=== PATIENT | female | born 1965 | race African-American/Black ===

== ENCOUNTER 2017-06-02 13:24 | Emergency (ER) | payer OTHER ==
[~2017-06-02] VITALS: Ht 157.5 cm; Wt 82.0 kg
[~2017-06-02 13:24] MED LIST: ALBU6.7H INH; ALBU8I INH; ALDA50TA2 PO; BETA0.052 TOPICAL; CART300C2 PO; CHLO25TA24 PO; CHLOR50 PO; CLOB0.055 TOPICAL; CYCL5TAB PO; EPIP0.3I IM; MONT10 PO; TRIA.1%T TOP; ZITHTAB PO; ZOLP10TA3 PO; [UNRECOGNIZED DRUG - SUPPLY]
[2017-06-02 13:34] VITALS: BP 126/66; PULSE 64; RESP 15; TEMP 98.3; O2SAT 99
[2017-06-02] MEDS ORDERED: CHLO25TA2 PO (13:56)
[2017-06-02] MEDS ORDERED: DILT300C3 PO (13:56)
[2017-06-02] MEDS ORDERED: MECLIZINE HCL 25 MG TAB PO ONE (14:00)
[2017-06-02] MEDS ORDERED: ONDANSETRON HCL 4 MG/2 ML VIAL IM ONE (14:00)
[2017-06-02] MEDS ORDERED: MORPHINE SULFATE 8 MG/ML INJ IM ONE (14:00)
[2017-06-02] MEDS ORDERED: MORPHINE SULFATE 4 MG/ML INJ IM ONE (14:00)
--- NOTE | 2017-06-02 14:00 | PD ---
HPI Chief Complaint: Dizziness Time Seen by Provider: 13:41 Travel History International Travel<30 days: No Contact w/Intl Traveler<30days: No Traveled to known affect area: No History of Present Illness HPI The patient was seen and examined in the presence of the nurse. This patient complains of room spinning dizziness as well as frontal headache. He does have occasional migraines. She's had vertigo before. No head injury or fever. No muscle weakness or sensory loss or speech slurring. She does have anxiety problems. Symptoms are moderately severe. No alleviating factors. Duration one day PFSH Past Medical History Asthma: Yes Autoimmune Disease: Yes Blood Disorders: No Heart Rhythm Problems: No Cancer: No Cardiovascular Problems: Yes (IRREGULAR BEAT) High Cholesterol: No Chest Pain: No Congestive Heart Failure: No COPD: No Cerebrovascular Accident: No Diabetes: No Diminished Hearing: No Endocrine: No Genitourinary: No Hepatitis: No Hiatal Hernia: No Hypertension: Yes Immune Disorder: No Musculoskeletal: No Neurologic: Yes Psychiatric: No Reproductive: No Respiratory: Yes Migraines: Yes Myocardial Infarction: No Seizures: Yes (LAST SEIZURE 07/2011 NOT CURRENTLY TAKING MEDICATION) Sleep Apnea: No Thyroid Disease: No Menopausal: Yes : 3 Para: 2 Past Surgical History Abdominal Surgery: No AICD: No Arteriovenous Shunt: No Cardiac Surgery: No Section: Yes Ear Surgery: No Endocrine Surgery: No Eye Surgery: No Genitourinary Surgery: No Gynecologic Surgery: Yes (C SECTION, REMOVAL FIBROID TUMORS) Hysterectomy: Yes Insulin Pump: No Joint Replacement: No Oral Surgery: No Pacemaker: No Thoracic Surgery: No Other Surgery: Yes ( BREAST REDUCTION) Social History Alcohol Use: No Tobacco Use: No Substance Use: No Allergies-Medications (Allergen,Severity, Reaction): Coded Allergies: Latex (Verified Allergy, Severe, Rash, 06/02/17) Rash all over Solu-Medrol (Verified Allergy, Severe, Hives, 06/02/17) Hives all over body Banana (Verified Allergy, Intermediate, allergy testing , 06/02/17) Egg Allergy (Verified Allergy, Intermediate, hives, 06/02/17) Tomato (Verified Allergy, Intermediate, hives, 06/02/17) White Fish (Verified Allergy, Intermediate, hives, 06/02/17) VA Inhibitors (Verified Adverse Reaction, Severe, angioedema and dermatitis, 06/02/17) Reported Meds & Prescriptions Reported Meds & Active Scripts Active K-Vescent (Potassium Bicarbonate) 25 Meq Tab 50 Meq PO Q3HR Aldactone (Spironolactone) 50 Mg Tab 50 Mg PO DAILY one tablet three days per week [Comp hose med press] Reported Diltiazem CD 24 HR 300 Mg Caper 300 Mg PO DAILY Chlorthalidone 25 Mg Tab 25 Mg PO DAILY Review of Systems General / Constitutional: No: Fever Eyes: No: Visual changes HENT: Positive: Headaches, Vertigo Cardiovascular: No: Chest Pain or Discomfort Respiratory: No: Shortness of Breath Gastrointestinal: No: Abdominal Pain Genitourinary: No: Dysuria Musculoskeletal: No: Pain Skin: No Rash Neurologic: Positive: Dizziness, Headache, No: Weakness Psychiatric: No: Depression Endocrine: No: Polydipsia Hematologic/Lymphatic: No: Easy Bruising Physical Exam Narrative GENERAL: Well-nourished, well-developed patient with vertigo and headache. SKIN: Focused skin assessment reveals no rash and nodules. Skin is Warm and dry. HEAD: Atraumatic. Normocephalic. EYES: Pupils equal and round. No scleral icterus. No injection or drainage. ENT: No nasal bleeding or discharge. Mucous membranes pink and moist. NECK: Trachea midline. No JVD. No meningeal signs CARDIOVASCULAR: Regular rate and rhythm. No murmur appreciated. RESPIRATORY: No accessory muscle use. Clear to auscultation. Breath sounds equal bilaterally. GASTROINTESTINAL: Abdomen soft, non-tender, nondistended. Hepatic and splenic margins not palpable. MUSCULOSKELETAL: No obvious deformities. No clubbing. No cyanosis. No edema. NEUROLOGICAL: Awake and alert. No obvious cranial nerve deficits. Motor grossly within normal limits. Normal speech. PSYCHIATRIC: Appropriate mood and affect; insight and judgment normal. Data Data Last Documented VS Vital Signs Date Time Temp Pulse Resp B/P Pulse Ox O2 Delivery O2 Flow Rate FiO2 06/02/17 16:13 68 16 112/62 99 Room Air 06/02/17 13:[address] Brain W/O Iv Contrast(Rout) (06/02/17 ) Ondansetron Inj (Zofran Inj) (06/02/17 14:00) Meclizine (Antivert) (06/02/17 14:00) Morphine Inj (Morphine Inj) (06/02/17 14:00) Iv Access Insert/Monitor (06/02/17 14:52) Complete Blood Count With Diff (06/02/17 14:52) Comprehensive Metabolic Panel (06/02/17 14:52) Lipase (06/02/17 14:52) Sodium Chlor 0.9% 1000 Ml Inj (Ns 1000 M (06/02/17 15:00) Labs Laboratory Tests Test 06/02/17 15:05 White Blood Count 12.8 TH/MM3 Red Blood Count 4.51 MIL/MM3 Hemoglobin 13.0 GM/DL Hematocrit 38.9 % Mean Corpuscular Volume 86.4 FL Mean Corpuscular Hemoglobin 28.8 PG Mean Corpuscular Hemoglobin 33.3 % Concent Red Cell Distribution Width 13.4 % Platelet Count 332 TH/MM3 Mean Platelet Volume 8.5 FL Neutrophils (%) (Auto) 43.9 % Lymphocytes (%) (Auto) 44.1 % Monocytes (%) (Auto) 7.7 % Eosinophils (%) (Auto) 0.4 % Basophils (%) (Auto) 3.9 % Neutrophils # (Auto) 5.6 TH/MM3 Lymphocytes # (Auto) 5.6 TH/MM3 Monocytes # (Auto) 1.0 TH/MM3 Eosinophils # (Auto) 0.1 TH/MM3 Basophils # (Auto) 0.5 TH/MM3 CBC Comment AUTO DIFF Sodium Level 139 MEQ/L Potassium Level 2.8 MEQ/L Chloride Level 100 MEQ/L Carbon Dioxide Level 28.7 MEQ/L Anion Gap 10 MEQ/L Blood Urea Nitrogen 11 MG/DL Creatinine 1.20 MG/DL Estimat Glomerular Filtration 58 ML/MIN Rate Random Glucose 116 MG/DL Calcium Level 9.4 MG/DL Total Bilirubin 0.4 MG/DL Aspartate Amino Transf 33 U/L (AST/SGOT) Alanine Aminotransferase 25 U/L (ALT/SGPT) Alkaline Phosphatase 79 U/L Total Protein 8.4 GM/DL Albumin 3.8 GM/DL Lipase 250 U/L [facility] Medical Decision Making Medical Screen Exam Complete: Yes Emergency Medical Condition: Yes Medical Record Reviewed: Yes Differential Diagnosis Vertigo, migraine, cluster headache Narrative Course I have reviewed the patient's electronic medical record. Patient is neurologically intact No objective findings on exam Brain CT is normal She has some degree of positional vertigo. I gave her dose of meclizine as well as some morphine and Zofran injection for symptom relief Shortly after the morphine injection of the patient developed epigastric pain. She thinks it's due to the medication as she had not mentioned it or had it prior I discussed that this would be an atypical reaction but she seemed overly symptomatic Therefore I placed an IV and ran some labs CBC is normal Metabolic profile normal except for hypokalemia of 2.8 I wrote a prescription for replacement doses LFTs and lipase are normal On reassessment she feels much better and her epigastric pain and headache have resolved I wrote her some Zofran and meclizine on prescription as well as the potassium Diagnosis Primary Impression: Positional vertigo Qualified Code: H81.10 - Positional vertigo, unspecified laterality Additional Impressions: Headache Qualified Code: R51 - Acute nonintractable headache, unspecified headache type Acute epigastric pain Hypokalemia Additional Instructions: The patient was advised to follow up with their physician and return if they worsen. The patient was warned about potential sedation for the medications they will receive on prescription. Med/Other Pt SpecificInfo: Prescription(s) given Scripts Ondansetron (Zofran)4 Mg Tab4 Mg PO Q6HR PRN (NAUSEA OR VOMITING) #12 TAB Ref 0 Prov:Michel Dejesus MD 06/02/17 Meclizine 25 Mg Tab25 Mg PO TID PRN (VERTIGO) #15 TAB Ref 0 Prov:Michel Dejesus MD 06/02/17 Potassium Bicarbonate Effervescent (K-Vescent)25 Meq Tab50 Meq PO Q3HR #4 TAB Ref 0 Prov:Michel Dejesus MD 06/02/17 Disposition: 01 DISCHARGE HOME Condition: Stable Michel Dejesus MD Jun 02, 2017 14:00
--- NOTE | 2017-06-02 14:21 | RADRPT ---
EXAM DATE/TIME: 06/02/2017 14:03 [facility] COMPARISON: CT BRAIN W/O CONTRAST, September 20, 2010, 13:39. INDICATIONS : Cephalgia. Dizziness. RADIATION DOSE: 66.57 CTDIvol (mGy) MEDICAL HISTORY : Seizures. Hypertension. SURGICAL HISTORY : Hysterectomy. section. ENCOUNTER: Initial ACUITY: 2 days PAIN SCALE: 8/10 LOCATION: cranial TECHNIQUE: Multiple contiguous axial images were obtained of the head. Using automated exposure control and adj ustment of the mA and/or kV according to patient size, radiation dose was kept as low as reasonably a chievable to obtain optimal diagnostic quality images. DICOM format image data is available electro nically for review and comparison. FINDINGS: CEREBRUM: The ventricles are normal for age. No evidence of midline shift, mass lesion, hemorrhage or acute in farction. No extra-axial fluid collections are seen. POSTERIOR FOSSA: The cerebellum and brainstem are intact. The 4th ventricle is midline. The cerebellopontine angle i s unremarkable. EXTRACRANIAL: The visualized portion of the orbits is intact. SKULL: The calvaria is intact. No evidence of skull fracture. CONCLUSION: Normal examination for a patient of this age. No significant change has occurred. Arias Hussein MD on June 02, 2017 at 14:19 Board Certified Radiologist. This report was verified electronically.
[2017-06-02 14:40] VITALS: BP 113/59; PULSE 70; RESP 16; O2SAT 100
[2017-06-02] MEDS ORDERED: SODIUM CHLOR 0.9% 1000 ML INJ 1,000 ML IV ONE (15:00)
[2017-06-02 15:15] VITALS: BP 144/71; PULSE 66; RESP 18; O2SAT 100
[2017-06-02 15:22] LABS: AUTOMATED NEUTROPHIL # 5.6 TH/MM3 (1.8-7.7); BASOPHIL # 0.5 TH/MM3 (0-0.2); BASOPHIL % 3.9 % (0.0-2.0); EOSINOPHIL # 0.1 TH/MM3 (0-0.4); EOSINOPHIL % 0.4 % (0.0-4.0); HEMATOCRIT 38.9 % (35.0-46.0); LYMPH % 44.1 % (9.0-44.0); LYMPHOCYTE # 5.6 TH/MM3 (1.0-4.8); MEAN CELL VOLUME 86.4 FL (80.0-100.0); MEAN CORPUSCULAR HEMOGLOBIN 28.8 PG (27.0-34.0); MEAN CORPUSCULAR HGB CONC 33.3 % (32.0-36.0); MONO % 7.7 % (0.0-8.0); NEUT % 43.9 % (16.0-70.0); PLATELET COUNT 332 TH/MM3 (150-450); RED BLOOD COUNT 4.51 MIL/MM3 (4.00-5.30); RED CELL DISTRIBUTION WIDTH 13.4 % (11.6-17.2); WHITE BLOOD COUNT 12.8 TH/MM3 (4.0-11.0)
[2017-06-02 15:27] LABS: HEMO FLAGS AUTO DIFF
[2017-06-02 15:44] LABS: ALT (GPT) 25 U/L (10-53); ANION GAP 10 MEQ/L (5-15); AST (GOT) 33 U/L (15-37); BICARBONATE 28.7 MEQ/L (21.0-32.0); BLOOD UREA NITROGEN 11 MG/DL (7-18); CHLORIDE 100 MEQ/L (98-107); GLOMERULAR FILTRATION RATE 58 ML/MIN (>89); SODIUM (NA) 139 MEQ/L (136-145); TOTAL BILIRUBIN ADULT 0.4 MG/DL (0.2-1.0)
[2017-06-02 15:46] LABS: POTASSIUM 2.8 MEQ/L (3.5-5.1)
[2017-06-02 16:13] VITALS: BP 112/62; PULSE 68; RESP 16; O2SAT 99
[2017-06-02 16:17] LABS: ALKALINE PHOSPHATASE 79 U/L (45-117)
[2017-06-02] MEDS ORDERED: KLORCONEF PO (16:21)
[2017-06-02] MEDS ORDERED: MECL-62 PO (16:22)
[2017-06-02] MEDS ORDERED: ZOFR4TAB PO (16:22)
[2017-06-02 17:11] LABS: SCAN/DIFF AUTO DIFF CONFIRMED
== END 2017-06-02 16:41 | disposition home or self-care (01) ==
LOC: PHED 13:24
DX: H81.10 Benign paroxysmal vertigo, unspecified ear (principal); R51 Headache; R10.13 Epigastric pain; E87.6 Hypokalemia; I10 Essential (primary) hypertension
CPT/HCPCS: 70450; 80053; 83690; 85025; 96360; 96372; 99285; J2270; J2405; J7030

== ENCOUNTER 2018-02-21 19:23 | Emergency (ER) | payer OTHER ==
[~2018-02-21 19:23] MED LIST changes: -*MEPERIDINE 25 MG INJ VIAL PERIprocedural Use ONLY ONE; -BACITRACIN TOP OINT 15 GM TUBE ONE; -CHLORHEXIDINE GLUCONATE 2 % 1 PACK (2 CLOTHS) TOPICAL PRN; -DO NOT ADM ANY ANTICOAGULANT DRUGS PRN; -EPINEPHrine HCL (1:1000) 1 MG/ML VIAL ONE; -EPINEPHrine HCL (1:1000) 30 MG/30 ML VIAL ONE; -FAMO20TA2 PO; -GELFOAM SIZE 100 ONE; -IBUPROFEN 400 MG TAB PO PRN; -LACTATED RINGER'S 1000 ML IV PRN; -LIDOCAINE 1%/EPINEPHrine 1:100,000 SOLN 50 ML VIAL ONE; -LIDOCAINE HCL 1% PF 5 ML SYRINGE OTHER ONE; -MEDR4PAK PO; -METOPROLOL TARTRATE 25 MG TAB PO PRN; -MIDAZOLAM HCL 2 MG/2 ML VIAL ONE; -MORPHINE SULFATE 4 MG/ML INJ IV PUSH PRN; -ONDANSETRON HCL 4 MG/2 ML VIAL IV PUSH PRN; -POVIDONE IODINE 5% (ANTISEPSIS KIT) 4 APPLICATIONS EACH NARE PRN; -PROPOFOL 200 MG/20 ML AMP IV ONE; -ROCURONIUM INJ 50 MG/5 ML SYRINGE IV PUSH ONE; -SODIUM CHLORID 0.9% 500 ML IV PRN; -SUGAMMADEX SODIUM 200 MG/2 ML VIAL IV PUSH ONE
[2018-02-22] MEDS ORDERED: MEDR4PAK PO (16:56)
[2018-02-22] MEDS ORDERED: FAMO20TA2 PO (17:02)
== END 2018-02-21 20:05 | disposition left against medical advice (07) ==
LOC: NED 19:23
DX: Z03.89 Encounter for observation for other suspected diseases and conditions ruled out (principal)
CPT/HCPCS: 99281

== ENCOUNTER 2018-02-21 20:07 | Observation (INO) | payer OTHER ==
[~2018-02-21] VITALS: Ht 157.5 cm; Wt 85.2 kg
[2018-02-21 20:57] VITALS: BP 140/78; PULSE 72; RESP 18; TEMP 99.7; O2SAT 99
[2018-02-21] MEDS ORDERED: NYSTAT/DIPHENHY/LIDO MOUTHWASH (Adult) 120ML SWISH-SWAL SCH (22:45)
[2018-02-21] MEDS ORDERED: SODIUM CHLOR 0.9% 1000 ML INJ 1,000 ML IV ONE (22:45)
[2018-02-21] MEDS ORDERED: AMPICILLIN-SULBACTAM INJ 3 GM in SODIUM CHLORIDE 0.9% INJ 100 ML IV ONE (22:45)
--- NOTE | 2018-02-21 23:01 | PD ---
HPI Chief Complaint: ENT Complaint Time Seen by Provider: 22:17 Travel History International Travel<30 days: No Contact w/Intl Traveler<30days: No Traveled to known affect area: No History of Present Illness HPI This patient complains of sore throat and difficulty swallowing and swelling in her neck. She had surgery with general anesthesia this morning for left nasal bleeding. Some cautery was done. She says she woke up out of anesthesia with throat pain. She is not able to drink much in the way of liquids. Voice is altered. Severity of symptoms is moderate. No alleviating factors. Duration is 13 hours. Pain is exacerbated with eating or drinking. PFSH Past Medical History Asthma: Yes Autoimmune Disease: Yes Blood Disorders: No Heart Rhythm Problems: No Cancer: No Cardiovascular Problems: Yes (IRREGULAR BEAT) High Cholesterol: No Chest Pain: No Congestive Heart Failure: No COPD: No Cerebrovascular Accident: No Diabetes: No Diminished Hearing: No Endocrine: No Genitourinary: No Hepatitis: No Hiatal Hernia: No Hypertension: Yes Immune Disorder: No Medical other: Yes (A SEIZURE IN PAST--NO MEDICATION NOW) Musculoskeletal: No Neurologic: Yes (SEIZURE 2011) Psychiatric: No Reproductive: No Respiratory: Yes (ASTHMA) Migraines: Yes Myocardial Infarction: No Seizures: Yes (LAST SEIZURE 07/2011 NOT CURRENTLY TAKING MEDICATION) Sleep Apnea: No Thyroid Disease: No Tetanus Vaccination: < 5 Years Influenza Vaccination: Yes ?: Not Menopausal: Yes : 3 Para: 2 Past Surgical History Abdominal Surgery: Yes (CHOLECYSTECTOMY 2015) AICD: No Arteriovenous Shunt: No Body Medical Devices: NONE PER PT Cardiac Surgery: No Section: Yes Cholecystectomy: Yes Ear Surgery: No Endocrine Surgery: No Eye Surgery: No Genitourinary Surgery: No Gynecologic Surgery: Yes (C SECTION, REMOVAL FIBROID TUMORS) Hysterectomy: Yes (PARTIAL) Insulin Pump: No Joint Replacement: No Neurologic Surgery: No Oral Surgery: No Pacemaker: No Thoracic Surgery: No Other Surgery: Yes ( BREAST REDUCTION) Social History Alcohol Use: No Tobacco Use: No Substance Use: No Allergies-Medications (Allergen,Severity, Reaction): Coded Allergies: latex (Unverified Allergy, Severe, Rash, 02/21/18) Rash all over methylprednisolone (Unverified Allergy, Severe, Hives, 02/21/18) Hives all over body Fish Containing Products (Unverified Allergy, Intermediate, hives, 02/21/18 ) banana (Unverified Allergy, Intermediate, allergy testing , 02/21/18) egg (Unverified Allergy, Intermediate, hives, 02/21/18) tomato (Unverified Allergy, Intermediate, hives, 02/21/18) benazepril (Unverified Adverse Reaction, Severe, angioedema and dermatitis , 02/21/18) captopril (Unverified Adverse Reaction, Severe, angioedema and dermatitis , 02/21/18) enalaprilat (Unverified Adverse Reaction, Severe, angioedema and dermatitis, 02/21/18) fosinopril (Unverified Adverse Reaction, Severe, angioedema and dermatitis , 02/21/18) lisinopril (Unverified Adverse Reaction, Severe, angioedema and dermatitis , 02/21/18) quinapril (Unverified Adverse Reaction, Severe, angioedema and dermatitis , 02/21/18) Reported Meds & Prescriptions Reported Meds & Active Scripts Active Hcfsim-Sbkptki-Zzkyc 50-325-40 (Butalbital/Aspirin/Caffeine) 50 Mg-325 Mg-40 Mg Tablet 1 Tab PO Q6HR Zofran (Ondansetron HCl) 4 Mg Tab 4 Mg PO Q6HR PRN Meclizine (Meclizine HCl) 25 Mg Tab 25 Mg PO TID PRN K-Vescent (Potassium Bicarbonate) 25 Meq Tab 50 Meq PO Q3HR Aldactone (Spironolactone) 50 Mg Tab 50 Mg PO DAILY one tablet three days per week [Comp hose med press] Reported Ventolin Hfa 18 GM Inh (Albuterol Sulfate) 90 Mcg/Act Aer 1 Puff INH Q4-6H PRN Zyrtec (Cetirizine HCl) 10 Mg Capsule 1 Tab PO DAILY Shruthi Allergy (Fexofenadine HCl) 60 Mg Tab 60 Mg PO DAILY Diltiazem CD 24 HR 300 Mg Caper 300 Mg PO DAILY Chlorthalidone 25 Mg Tab 25 Mg PO DAILY Review of Systems General / Constitutional: Positive: Fever Eyes: No: Visual changes HENT: Positive: Sore Throat, Neck Pain, No: Headaches Cardiovascular: No: Chest Pain or Discomfort Respiratory: No: Shortness of Breath Gastrointestinal: No: Abdominal Pain Genitourinary: No: Dysuria Musculoskeletal: No: Pain Skin: No Rash Neurologic: No: Weakness Psychiatric: No: Depression Endocrine: No: Polydipsia Hematologic/Lymphatic: No: Easy Bruising Physical Exam Narrative GENERAL: Well-nourished, well-developed patient with throat pain . Her voice sounds altered. She has difficulty swallowing. SKIN: Focused skin assessment reveals no rash and nodules. Skin is Warm and dry. HEAD: Atraumatic. Normocephalic. EYES: Pupils equal and round. No scleral icterus. No injection or drainage. ENT: No active nasal bleeding or discharge. Mucous membranes pink and moist. Uvula is midline without swelling. No exudate. NECK: Trachea midline. No JVD. No submental induration. There is tenderness on either side of the neck but no warmth or redness. I do not see any asymmetrical swelling. CARDIOVASCULAR: Regular rate and rhythm. No murmur appreciated. RESPIRATORY: No accessory muscle use. Clear to auscultation. Breath sounds equal bilaterally. GASTROINTESTINAL: Abdomen soft, non-tender, nondistended. Hepatic and splenic margins not palpable. MUSCULOSKELETAL: No obvious deformities. No clubbing. No cyanosis. No edema. NEUROLOGICAL: Awake and alert. No obvious cranial nerve deficits. Motor grossly within normal limits. Normal speech. PSYCHIATRIC: Appropriate mood and affect; insight and judgment normal. Data Data Last Documented VS Vital Signs Date Time Temp Pulse Resp B/P (MAP) Pulse Ox O2 Delivery O2 Flow Rate FiO2 02/21/18 20:57 99.7 72 18 140/78 (98) 99 Orders Orders Iv Access Insert/Monitor (02/21/18 22:40) Complete Blood Count With Diff (02/21/18 22:40) Basic Metabolic Panel (Bmp) (02/21/18 22:40) Ampicillin-Sulbactam Inj (Unasyn Inj) (02/21/18 22:45) Inwn-Gheq-Xldx Liq (Magic Mouthwash Adul (02/21/18 22:45) Sodium Chlor 0.9% 1000 Ml Inj (Ns 1000 M (02/21/18 22:45) Soft Tissue Neck (02/21/18 ) Sodium Chlor 0.9% 1000 Ml Inj (Ns 1000 M (02/21/18 23:15) Labs Laboratory Tests Test 02/21/18 23:24 [facility] Medical Decision Making Medical Screen Exam Complete: Yes Emergency Medical Condition: Yes Medical Record Reviewed: Yes Differential Diagnosis Tonsillitis, pharyngitis, epiglottitis, Solitario's angina Narrative Course I have reviewed the patient's electronic medical record. Reviewed her operative note from this morning Presentation is not obvious from initial history and exam. She has an odd Voice and difficulty swallowing. However I do not see swelling of her uvula or posterior pharyngeal structures. She has a temp of 99.7 Wonder if she has some epiglottitis. saturations are 99% and she is not short of breath. I have ordered some lab studies as well as a liter of saline and a dose of IV Unasyn I will order soft tissue x-ray of the neck Neck x-rays negative. No thumbprint sign seen I am going to order a soft tissue CT of the neck Case checked out to Michel Little MD Feb 21, 2018 23:01
[2018-02-21] MEDS: SODIUM CHLOR 0.9% 1000 ML INJ 1,000 ML IV SCH ×2 (23:15→23:45)
--- NOTE | 2018-02-21 23:15 | RADRPT ---
EXAM DATE/TIME: 02/21/2018 22:49 [facility] COMPARISON: No previous studies available for comparison. INDICATIONS : Throat pain after patient was extubated post surgery today MEDICAL HISTORY : None. SURGICAL HISTORY : None. ENCOUNTER: Initial ACUITY: 1 day PAIN SCORE: 6/10 LOCATION: Esophagus FINDINGS: Two view examination of the soft tissues of the neck demonstrates the hypopharyngeal airway to have a grossly normal configuration. The trachea is midline. No radiopaque foreign bodies are seen. CONCLUSION: Unremarkable study. Scooter Berkowitz MD on February 21, 2018 at 23:13 Board Certified Radiologist. This report was verified electronically.
[2018-02-21 23:29] LABS: AUTOMATED NEUTROPHIL # 8.5 TH/MM3 (1.8-7.7); BASOPHIL # 0.1 TH/MM3 (0-0.2); BASOPHIL % 0.7 % (0.0-2.0); HEMATOCRIT 41.5 % (35.0-46.0); HEMOGLOBIN 13.5 GM/DL (11.6-15.3); LYMPH % 18.7 % (9.0-44.0); LYMPHOCYTE # 2.1 TH/MM3 (1.0-4.8); MEAN CELL VOLUME 87.4 FL (80.0-100.0); MEAN CORPUSCULAR HEMOGLOBIN 28.5 PG (27.0-34.0); MEAN CORPUSCULAR HGB CONC 32.6 % (32.0-36.0); MEAN PLATELET VOLUME 8.3 FL (7.0-11.0); MONO % 3.6 % (0.0-8.0); MONOCYTE # 0.4 TH/MM3 (0-0.9); PLATELET COUNT 291 TH/MM3 (150-450); RED BLOOD COUNT 4.75 MIL/MM3 (4.00-5.30); RED CELL DISTRIBUTION WIDTH 13.2 % (11.6-17.2); WHITE BLOOD COUNT 11.1 TH/MM3 (4.0-11.0)
[2018-02-21 23:40] LABS: CALCIUM 9.6 MG/DL (8.5-10.1)
[2018-02-21 23:41] LABS: BICARBONATE 28.2 MEQ/L (21.0-32.0)
[2018-02-21 23:44] LABS: CREATININE 1.1 MG/DL (0.50-1.00)
[2018-02-22] VITALS (8 sets, daily range): BP systolic 89–147; BP diastolic 58–78; PULSE 59–80; RESP 16–20; TEMP 96–98.6; O2SAT 95–100
[2018-02-22 01:07] LABS: BILIRUBIN, URINE NEG (NEG); BLOOD, URINE NEG (NEG); GLUCOSE,URINE NEG (NEG); KETONE, URINE NEG (NEG); NITRITE,URINE NEG (NEG); URINE COLOR YELLOW (YELLW/STRAW); URINE LEUKOCYTE ESTERASE NEG (NEG)
[2018-02-22] MEDS ORDERED: IOHEXOL 350 MG/ML 10 ML VIAL (for RAD DIAG) IVCONTRAST ONE (01:10)
[2018-02-22 01:11] LABS: BACTERIA, URINE RARE /hpf; RBC, URINE 0-2 /hpf (0-3); SQUAMOUS EPITHELIAL CELL URINE > 8 /hpf (0-5); WBC, URINE 0-2 /hpf (0-5)
--- NOTE | 2018-02-22 01:21 | RADRPT ---
EXAM DATE/TIME: 02/22/2018 00:51 [facility] COMPARISON: No previous studies available for comparison. EXTERNAL COMPARISON : INDICATIONS : Sore throat and swelling status post anethesia today. Post extubation. IV CONTRAST: 60 cc Omnipaque 350 (iohexol) IV RADIATION DOSE: 14.95 CTDIvol (mGy) MEDICAL HISTORY : Hypertension. SURGICAL HISTORY : None. ENCOUNTER: Initial ACUITY: 1 day PAIN SCALE: 8/10 LOCATION: throat TECHNIQUE: Volumetric scanning of the neck was performed. Using automated exposure control and adjustment of th e mA and/or kV according to patient size, radiation dose was kept as low as reasonably achievable to obtain optimal diagnostic quality images. DICOM format image data is available electronically for r eview and comparison. FINDINGS: NASOPHARYNX: The nasopharyngeal airway has a normal configuration. No mucosal thickening or mass is seen. OROPHARYNX: The intrinsic muscles of the tongue are symmetric. The tonsillar pillars are intact. The prevertebr al soft tissues are not thickened. LARYNX: The supraglottic, glottic, and infraglottic structures are intact. PARAPHARYNGEAL: The parapharyngeal space is intact. SALIVARY GLANDS: The parotid and submandibular glands are intact. LYMPH NODES: No enlarged or necrotic-appearing nodes. THYROID: Homogeneous enhancement without evidence of nodule. BONES: Unremarkable. CONCLUSION: Unremarkable CT soft tissue neck. Scooter Berkowitz MD on February 22, 2018 at 1:18 Board Certified Radiologist. This report was verified electronically.
[2018-02-22] MEDS ORDERED: LACTULOSE SYRUP 20 GM/30 ML CUP PO PRN (01:30)
[2018-02-22] MEDS ORDERED: SENNOSIDES 8.6 MG TAB PO PRN (01:30)
[2018-02-22] MEDS ORDERED: NALOXONE HCL 0.4 MG/ML AMP IV PUSH PRN (01:30)
[2018-02-22] MEDS ORDERED: MORPHINE SULFATE 2 MG/ML INJ IV PUSH PRN (01:30)
[2018-02-22] MEDS ORDERED: ACETAMINOPHEN 325 MG TAB PO PRN (01:30)
[2018-02-22] MEDS ORDERED: SODIUM CHLORIDE 0.9% FLUSH 10 ML FLUSH IV FLUSH PRN (01:30)
[2018-02-22] MEDS: SODIUM CHLOR 0.9% 1000 ML INJ 1,000 ML IV SCH ×6 (01:30→20:42)
[2018-02-22] MEDS ORDERED: ONDANSETRON HCL 4 MG/2 ML VIAL IVP PRN (01:30)
[2018-02-22] MEDS ORDERED: BISACODYL 10 MG SUPP RECTAL PRN (01:30)
[2018-02-22] MEDS ORDERED: MAGNESIUM HYDROXIDE SUSP 30 ML CUP PO PRN (01:30)
--- NOTE | 2018-02-22 01:37 | PD ---
Physical Exam Time Seen by Provider: 01:[address] Dejesus was gracious enough to see this patient when I became bogged down with another patient. He ordered laboratory work, soft tissue neck which was normal and CT scan of the neck which was normal. Data Data Last Documented VS Vital Signs Date Time Temp Pulse Resp B/P (MAP) Pulse Ox O2 Delivery O2 Flow Rate FiO2 02/22/18 01:08 80 17 147/78 (101) 97 Room Air 02/21/18 20:57 99.7 Orders Orders Iv Access Insert/Monitor (02/21/18 22:40) Complete Blood Count With Diff (02/21/18 22:40) Basic Metabolic Panel (Bmp) (02/21/18 22:40) Ampicillin-Sulbactam Inj (Unasyn Inj) (02/21/18 22:45) Qzic-Zjum-Eqfw Liq (Magic Mouthwash Adul (02/21/18 22:45) Sodium Chlor 0.9% 1000 Ml Inj (Ns 1000 M (02/21/18 22:45) Soft Tissue Neck (02/21/18 ) Sodium Chlor 0.9% 1000 Ml Inj (Ns 1000 M (02/21/18 23:15) Ct Soft Tiss Neck W Iv Cont (02/21/18 ) Urinalysis - C+S If Indicated (02/22/18 00:55) Iohexol 350 Inj (Omnipaque 350 Inj) (02/22/18 01:10) Labs Laboratory Tests Test 02/21/18 23:24 02/22/18 01:00 White Blood Count 11.1 TH/MM3 Red Blood Count 4.75 MIL/MM3 Hemoglobin 13.5 GM/DL Hematocrit 41.5 % Mean Corpuscular Volume 87.4 FL Mean Corpuscular Hemoglobin 28.5 PG Mean Corpuscular Hemoglobin Concent 32.6 % Red Cell Distribution Width 13.2 % Platelet Count 291 TH/MM3 Mean Platelet Volume 8.3 FL Neutrophils (%) (Auto) 77.0 % Lymphocytes (%) (Auto) 18.7 % Monocytes (%) (Auto) 3.6 % Eosinophils (%) (Auto) 0.0 % Basophils (%) (Auto) 0.7 % Neutrophils # (Auto) 8.5 TH/MM3 Lymphocytes # (Auto) 2.1 TH/MM3 Monocytes # (Auto) 0.4 TH/MM3 Eosinophils # (Auto) 0.0 TH/MM3 Basophils # (Auto) 0.1 TH/MM3 CBC Comment DIFF FINAL Differential Comment Blood Urea Nitrogen 10 MG/DL Creatinine 1.10 MG/DL Random Glucose 110 MG/DL Calcium Level 9.6 MG/DL Sodium Level 132 MEQ/L Potassium Level 3.8 MEQ/L Chloride Level 97 MEQ/L Carbon Dioxide Level 28.2 MEQ/L Anion Gap 7 MEQ/L Estimat Glomerular Filtration Rate 64 ML/MIN Urine Color YELLOW Urine Turbidity CLEAR Urine pH 6.0 Urine Specific [place] 1.015 Urine Protein NEG mg/dL Urine Glucose (UA) NEG mg/dL Urine Ketones NEG mg/dL Urine Occult Blood NEG Urine Nitrite NEG Urine Bilirubin NEG Urine Urobilinogen 0.2 MG/DL Urine Leukocyte Esterase NEG Urine RBC 0-2 /hpf Urine WBC 0-2 /hpf Urine Squamous Epithelial Cells > 8 /hpf Urine Bacteria RARE /hpf Microscopic Urinalysis Comment CULT NOT INDICATED MDM Medical Record Reviewed: Yes Supervised Visit with OTIS: No Differential Diagnosis Tracheal irritation from intubation, tracheal laceration-highly unlikely, tracheal abscess-highly unlikely, hematoma-highly unlikely Narrative Course The patient appears to have tracheal irritation from intubation. She is so painful, pain scale 10/10 with sharp pain that she cannot swallow any liquids. She will be give morphine IV. She will be [address] Anaya with whom I have already discussed. The patient is allergic to methylprednisolone. She can take morphine and she can take Zofran. Diagnosis Primary Impression: Contusion of trachea Additional Impression: Dehydration Admitting Information Admitting Physician Requests: Observation Abrahan Baeza MD Feb 22, 2018 01:37
[2018-02-22] MEDS ORDERED: MORPHINE SULFATE 4 MG/ML INJ IV PUSH ONE (01:45)
[2018-02-22] MEDS ORDERED: ONDANSETRON HCL 4 MG/2 ML VIAL IV ONE (01:45)
[2018-02-22] MEDS: DOCUSATE SODIUM 50 MG/SENNA 8.6 MG TAB PO SCH ×2 (08:38→20:31)
[2018-02-22] MEDS: SODIUM CHLORIDE 0.9% FLUSH 10 ML FLUSH IV FLUSH SCH ×2 (08:38→20:29)
[2018-02-22] MEDS ORDERED: FAMOTIDINE 20 MG/2 ML VIAL IV PUSH SCH (11:00)
--- NOTE | 2018-02-22 11:44 | HHI.HP ---
[facility] Armand Sawant MD Admission Diagnosis Tracheal contusion, dehydration Diagnoses: (1) Acute tracheitis without airway obstruction (2) Odynophagia Chief Complaint: Severe sore throat after intubation Travel History International Travel<30 Days: No Contact w/Intl Traveler <30 Da: No Traveled to Known Affected Are: No History of Present Illness Is a 52-year-old female with known history of hypertension, anxiety, depression , asthma, history of multiple allergic reactions who presented to hospital because of sore throat, difficulty swallowing, pain on swallowing after intubation. Patient apparently had episode of epistaxis that cannot be controlled in outpatient setting at Dr. Payne office. Patient had to be brought to the hospital for general anesthesia. Patient was intubated using video laryngoscopy with a 7.0 ET tube which is atraumatic per anesthesia records , general anesthesia was given to include Versed, fentanyl, propofol, Rocuronium. Apparently patient did good in postop, however when she went home he started developing severe pharyngitis, odynophagia, pain became so severe she came to the emergency department for evaluation. Because the patient had tracheal irritation from intubation, pain 10/10 on a pain scale and unable to swallow any liquids. Patient was given IV morphine with control of the pain, as recommended by the ER physician that the patient needed observed in the hospital for further recommendations. Patient denied any chest pain, shortness of breath, dyspnea, rash. Patient states that she has had multiple evaluations for allergic reactions to different etiology is. She has received Decadron in the past without any adverse reaction. Patient is also taking prednisone without adverse reaction Review of Systems Ears, nose, mouth, throat: COMPLAINS OF: Throat pain, Odynophagia Except as stated in HPI: all other systems reviewed are Neg Past Family Social History Past Medical History Hypertension History of asthma history of seizure 5 years ago Past Surgical History Cholecystectomy Fibroid tumors removed Hysterectomy Left ankle surgery Breast reduction Endoscopic control of epistaxis Reported Medications Reported Meds & Active Scripts Active Noehmo-Rjvvvoy-Zzkhi 50-325-40 (Butalbital/Aspirin/Caffeine) 50 Mg-325 Mg-40 Mg Tablet 1 Tab PO Q6HR Zofran (Ondansetron HCl) 4 Mg Tab 4 Mg PO Q6HR PRN Meclizine (Meclizine HCl) 25 Mg Tab 25 Mg PO TID PRN K-Vescent (Potassium Bicarbonate) 25 Meq Tab 50 Meq PO Q3HR Aldactone (Spironolactone) 50 Mg Tab 50 Mg PO DAILY one tablet three days per week [Comp hose med press] Reported Ventolin Hfa 18 GM Inh (Albuterol Sulfate) 90 Mcg/Act Aer 1 Puff INH Q4-6H PRN Zyrtec (Cetirizine HCl) 10 Mg Capsule 1 Tab PO DAILY Shruthi Allergy (Fexofenadine HCl) 60 Mg Tab 60 Mg PO DAILY Diltiazem CD 24 HR 300 Mg Caper 300 Mg PO DAILY Chlorthalidone 25 Mg Tab 25 Mg PO DAILY Allergies: Coded Allergies: latex (Unverified Allergy, Severe, Rash, 02/21/18) Rash all over methylprednisolone (Unverified Allergy, Severe, Hives, 02/21/18) Hives all over body Fish Containing Products (Unverified Allergy, Intermediate, hives, 02/21/18 ) banana (Unverified Allergy, Intermediate, allergy testing , 02/21/18) egg (Unverified Allergy, Intermediate, hives, 02/21/18) tomato (Unverified Allergy, Intermediate, hives, 02/21/18) benazepril (Unverified Adverse Reaction, Severe, angioedema and dermatitis , 02/21/18) captopril (Unverified Adverse Reaction, Severe, angioedema and dermatitis , 02/21/18) enalaprilat (Unverified Adverse Reaction, Severe, angioedema and dermatitis, 02/21/18) fosinopril (Unverified Adverse Reaction, Severe, angioedema and dermatitis , 02/21/18) lisinopril (Unverified Adverse Reaction, Severe, angioedema and dermatitis , 02/21/18) quinapril (Unverified Adverse Reaction, Severe, angioedema and dermatitis , 02/21/18) Family History Reviewed is significant for mother with allergies and hypertension. No indication of any heart disease, lung disease, diabetes, seizures, stroke Social History Patient denies any tobacco, alcohol or illicit drugs Physical Exam Vital Signs Vital Signs Date Time Temp Pulse Resp B/P (MAP) Pulse Ox O2 Delivery O2 Flow Rate FiO2 02/22/18 07:55 97.9 61 16 89/58 (68) 100 02/22/18 04:00 97.6 60 20 108/62 (77) 95 02/22/18 02:30 96.0 66 20 127/71 (89) 96 02/22/18 02:03 18 02/22/18 02:03 98.6 70 18 118/69 (85) 97 02/22/18 01:08 80 17 147/78 (101) 97 Room Air 02/21/18 20:57 99.7 72 18 140/78 (98) 99 Physical Exam GENERAL: Well-developed, well-nourished, in no acute distress. alert and orientated. Patient with laryngitis HEENT: Head is normocephalic without any lesions or masses noted. Facial features are symmetric. Eyes: Pupils equal round reactive to light. Extraocular muscles are intact. Conjunctivae were clear. Oropharyngeal: Pharynx with mild erythema. Tongue is midline without deviation. Buccal mucosa is moist without any masses or lesions NECK: Supple without any masses. Trachea midline no deviation. No JVD, no bruits are appreciated CARDIAC: Regular rhythm, regular rate. S1/S2 are heard. No murmurs gallops or rubs. LUNGS: Clear to auscultation bilaterally. No wheeze, rhonchi or rales. No use of accessory muscles on inspiration or expiration. ABDOMEN: Soft, nontender. Nondistended. Bowel sounds heard in all 4 quadrants. No organomegaly or masses. Negative rebound, negative guarding EXTREMITIES: No edema, pulses are equal bilaterally. No cyanosis or clubbing NEUROLOGY: Mood and affect appear appropriate. Cranial nerves II through XII grossly intact. Muscle strength 5/5 in upper and lower extremities bilaterally. Deep tendon reflexes are 2+ in upper and lower extremities bilaterally. Laboratory Laboratory Tests Test 02/21/18 23:24 02/22/18 01:00 White Blood Count 11.1 Red Blood Count 4.75 Hemoglobin 13.5 Hematocrit 41.5 Mean Corpuscular Volume 87.4 Mean Corpuscular Hemoglobin 28.5 Mean Corpuscular Hemoglobin Concent 32.6 Red Cell Distribution Width 13.2 Platelet Count 291 Mean Platelet Volume 8.3 Neutrophils (%) (Auto) 77.0 Lymphocytes (%) (Auto) 18.7 Monocytes (%) (Auto) 3.6 Eosinophils (%) (Auto) 0.0 Basophils (%) (Auto) 0.7 Neutrophils # (Auto) 8.5 Lymphocytes # (Auto) 2.1 Monocytes # (Auto) 0.4 Eosinophils # (Auto) 0.0 Basophils # (Auto) 0.1 CBC Comment DIFF FINAL Differential Comment Blood Urea Nitrogen 10 Creatinine 1.10 Random Glucose 110 Calcium Level 9.6 Sodium Level 132 Potassium Level 3.8 Chloride Level 97 Carbon Dioxide Level 28.2 Anion Gap 7 Estimat Glomerular Filtration Rate 64 Urine Color YELLOW Urine Turbidity CLEAR Urine pH 6.0 Urine Specific [place] 1.015 Urine Protein NEG Urine Glucose (UA) NEG Urine Ketones NEG Urine Occult Blood NEG Urine Nitrite NEG Urine Bilirubin NEG Urine Urobilinogen 0.2 Urine Leukocyte Esterase NEG Urine RBC 0-2 Urine WBC 0-2 Urine Squamous Epithelial Cells > 8 Urine Bacteria RARE Microscopic Urinalysis Comment CULT NOT INDICATED Result Diagram: 02/21/18232302/21/18 232 Imaging Last Impressions Soft Tissue Neck X-Ray 02/21/18 0000 Signed Impressions: Service Date/Time: Wednesday, February 21, 2018 22:49 - CONCLUSION: Unremarkable study. Scooter Berkowitz MD Neck CT 02/21/18 0000 Signed Impressions: Service Date/Time: January 00:51 - CONCLUSION: Unremarkable CT soft tissue neck. MD Evelyn Caldwell VTE Risk Assessment Rangeli VTE Risk Assessment: No/Low Risk (score <= 1) Caprini Risk Assessment Model Point Value = 1 Point Value = 2 Point Value = 3 Point Value = 5 Age 41-60 Minor surgery BMI > 25 kg/m2 Swollen legs Varicose veins or History of unexplained or recurrent spontaneous Oral contraceptives or hormone replacement Sepsis (< 1 month) Serious lung disease, including pneumonia (< 1 month) Abnormal pulmonary function Acute myocardial infarction Congestive heart failure (< 1 month) History of inflammatory bowel disease Medical patient at bed rest Age 61-74 Arthroscopic surgery Major open surgery (> 45 min) Laparoscopic surgery (> 45 min) Malignancy Confined to bed (> 72 hours) Immobilizing plaster cast Central venous access Age >= 75 History of VTE Family history of VTE Factor V Leiden Prothrombin [id number] Lupus anticoagulant Anticardiolipin antibodies Elevated serum homocysteine Heparin-induced thrombocytopenia Other congenital or acquired thrombophilia Stroke (< 1 month) Elective arthroplasty Hip, pelvis, or leg fracture Acute spinal cord injury (< 1 month) Prophylaxis Regimen Total Risk Factor Score Risk Level Prophylaxis Regimen 0-1 Low Early ambulation 2 Moderate Order ONE of the following: *Sequential Compression Device (SCD) *Heparin 5000 units SQ BID 3-4 Higher Order ONE of the following medications: *Heparin 5000 units SQ TID *Enoxaparin/Lovenox 40 mg SQ daily (WT < 150 kg, CrCl > 30 mL/min) *Enoxaparin/Lovenox 30 mg SQ daily (WT < 150 kg, CrCl > 10-29 mL/min) *Enoxaparin/Lovenox 30 mg SQ BID (WT < 150 kg, CrCl > 30 mL/min) AND/OR *Sequential Compression Device (SCD) 5 or more Highest Order ONE of the following medications: *Heparin 5000 units SQ TID (Preferred with Epidurals) *Enoxaparin/Lovenox 40 mg SQ daily (WT < 150 kg, CrCl > 30 mL/min) *Enoxaparin/Lovenox 30 mg SQ daily (WT < 150 kg, CrCl > 10-29 mL/min) *Enoxaparin/Lovenox 30 mg SQ BID (WT < 150 kg, CrCl > 30 mL/min) AND *Sequential Compression Device (SCD) Assessment and Plan Assessment and Plan Tracheitis without obstruction, odynophagia Secondary to intubation, possible allergic reaction CT of the neck and soft tissue x-ray do not indicate any acute abnormality Start Decadron 4 mg every 6 hours, start Pepcid IV every 12 hours Start Chloraseptic Drewsey Clear liquid diet Speech therapy evaluation Morphine for pain control, with hold parameters for hypotension Hypertension Resume patient's home medications when able to tolerate by mouth meds Apresoline IV as needed DVT prevention Sequential compression devices Michel Baeza Feb 22, 2018 11:44
[2018-02-22] MEDS ORDERED: CETIRIZINE HCL SYRUP 10 MG/10 ML UDC PO SCH (12:45)
[2018-02-22] MEDS: FAMOTIDINE 20 MG TAB PO SCH ×2 (13:20→20:31)
[2018-02-22] MEDS: DEXAMETHASONE SOD PHOS 4 MG/ML VIAL IV PUSH SCH ×3 (13:20→23:26)
[2018-02-22] MEDS ORDERED: BENZOCAINE 6 MG/MENTHOL 10 MG LOZENGE BUCCAL PRN (14:45)
[2018-02-22] MEDS: PHENOL 1.4% SOLN 180 ML BTL OROPHARYNG PRN ×2 (15:25→20:29)
[2018-02-22] MEDS ORDERED: MEDR4PAK PO (16:56)
[2018-02-22] MEDS ORDERED: CETIRIZINE HCL 10 MG TAB PO ONE (17:00)
[2018-02-22] MEDS ORDERED: FAMO20TA2 PO (17:02)
--- NOTE | 2018-02-22 17:02 | HHI.DCPOC ---
Discharge Care Plan Diagnosis: (1) Acute tracheitis without airway obstruction (2) Odynophagia Goals to Promote Your Health * To prevent worsening of your condition and complications * To maintain your health at the optimal level Directions to Meet Your Goals Take your medications as prescribed Follow your dietary instruction Follow activity as directed Keep your appointments as scheduled Take your immunizations and boosters as scheduled If your symptoms worsen call your PCP, if no PCP go to Urgent Care Center or Emergency Room Smoking is Dangerous to Your Health. Avoid second hand smoke Call the 24-hour hour crisis hotline for domestic abuse at Michel Baeza Feb 22, 2018 17:02
[2018-02-23] VITALS: BP 129/77; PULSE 69; RESP 20; TEMP 97.8; O2SAT 100
[2018-02-23] MEDS: SODIUM CHLOR 0.9% 1000 ML INJ 1,000 ML IV SCH ×2 (05:41)
[2018-02-23] MEDS: DEXAMETHASONE SOD PHOS 4 MG/ML VIAL IV PUSH SCH (05:41)
[2018-02-23 06:33] LABS: AUTOMATED NEUTROPHIL # 11.1 TH/MM3 (1.8-7.7); BASOPHIL % 0.2 % (0.0-2.0); EOSINOPHIL % 0.1 % (0.0-4.0); HEMATOCRIT 36.4 % (35.0-46.0); HEMOGLOBIN 11.9 GM/DL (11.6-15.3); MEAN CELL VOLUME 88.7 FL (80.0-100.0); MEAN CORPUSCULAR HEMOGLOBIN 29.1 PG (27.0-34.0); MEAN CORPUSCULAR HGB CONC 32.8 % (32.0-36.0); MEAN PLATELET VOLUME 8.7 FL (7.0-11.0); MONO % 0.3 % (0.0-8.0); NEUT % 91.4 % (16.0-70.0); PLATELET COUNT 236 TH/MM3 (150-450); RED CELL DISTRIBUTION WIDTH 13.2 % (11.6-17.2); WHITE BLOOD COUNT 12.1 TH/MM3 (4.0-11.0)
[2018-02-23 07:01] LABS: BICARBONATE 25.2 MEQ/L (21.0-32.0); CALCIUM 8.6 MG/DL (8.5-10.1); CREATININE 0.89 MG/DL (0.50-1.00)
[2018-02-23 08:00] VITALS: BP 139/93; PULSE 56; RESP 16; TEMP 97; O2SAT 99
[2018-02-23] MEDS: FAMOTIDINE 20 MG TAB PO SCH (08:31)
[2018-02-23] MEDS: SODIUM CHLORIDE 0.9% FLUSH 10 ML FLUSH IV FLUSH SCH (08:31)
[2018-02-23] MEDS: DOCUSATE SODIUM 50 MG/SENNA 8.6 MG TAB PO SCH (08:31)
[2018-02-23] MEDS ORDERED: CETIRIZINE HCL 10 MG TAB PO SCH (09:00)
[2018-02-23] MEDS: PHENOL 1.4% SOLN 180 ML BTL OROPHARYNG PRN (09:09)
--- NOTE | 2018-02-23 09:13 | HHI.DS ---
Discharge Summary Admission Date Feb 22, 2018 at 01:42 Discharge Date: Feb 23, 2018 Admitting Diagnosis Tracheal contusion, dehydration (1) Acute tracheitis without airway obstruction ICD Code: J04.10 - Acute tracheitis without obstruction (2) Odynophagia ICD Code: R13.10 - Dysphagia, unspecified Procedures None Brief History - From Admission Is a 52-year-old female with known history of hypertension, anxiety, depression , asthma, history of multiple allergic reactions who presented to hospital because of sore throat, difficulty swallowing, pain on swallowing after intubation. Patient apparently had episode of epistaxis that cannot be controlled in outpatient setting at Dr. Payne office. Patient had to be brought to the hospital for general anesthesia. Patient was intubated using video laryngoscopy with a 7.0 ET tube which is atraumatic per anesthesia records , general anesthesia was given to include Versed, fentanyl, propofol, Rocuronium. Apparently patient did good in postop, however when she went home he started developing severe pharyngitis, odynophagia, pain became so severe she came to the emergency department for evaluation. Because the patient had tracheal irritation from intubation, pain 10/10 on a pain scale and unable to swallow any liquids. Patient was given IV morphine with control of the pain, as recommended by the ER physician that the patient needed observed in the hospital for further recommendations. Patient denied any chest pain, shortness of breath, dyspnea, rash. Patient states that she has had multiple evaluations for allergic reactions to different etiology is. She has received Decadron in the past without any adverse reaction. Patient is also taking prednisone without adverse reaction CBC/BMP: 02/23/18 0600 02/23/18 0600 Significant Findings Laboratory Tests Test 02/21/18 23:24 02/22/18 01:00 02/23/18 06:00 White Blood Count 11.1 TH/MM3 (4.0-11.0) 12.1 TH/MM3 (4.0-11.0) Neutrophils (%) (Auto) 77.0 % (16.0-70.0) 91.4 % (16.0-70.0) Neutrophils # (Auto) 8.5 TH/MM3 (1.8-7.7) 11.1 TH/MM3 (1.8-7.7) Creatinine 1.10 MG/DL (0.50-1.00) Random Glucose 110 MG/DL (74-106) 144 MG/DL (74-106) Sodium Level 132 MEQ/L (136-145) Chloride Level 97 MEQ/L (98-107) Estimat Glomerular Filtration Rate 64 ML/MIN (>89) 81 ML/MIN (>89) Urine Squamous Epithelial Cells > 8 /hpf (0-5) Urine Bacteria RARE /hpf (NONE) Lymphocytes (%) (Auto) 8.0 % (9.0-44.0) Imaging Last Impressions Soft Tissue Neck X-Ray 02/21/18 0000 Signed Impressions: Service Date/Time: Wednesday, February 21, 2018 22:49 - CONCLUSION: Unremarkable study. Scooter Berkowitz MD Neck CT 02/21/18 0000 Signed Impressions: Service Date/Time: January 00:51 - CONCLUSION: Unremarkable CT soft tissue neck. Scooter Berkowitz MD PE at Discharge GENERAL: Well-developed, well-nourished, in no acute distress. alert and orientated HEENT: Head is normocephalic without any lesions or masses noted. Facial features are symmetric. Eyes: Extraocular muscles are intact. Conjunctivae were clear. NECK: Supple without any masses. Trachea midline no deviation. No JVD, CARDIAC: Regular rhythm, regular rate. S1/S2 are heard. No murmurs gallops or rubs. LUNGS: Clear to auscultation bilaterally. No wheeze, rhonchi or rales. No use of accessory muscles on inspiration or expiration. ABDOMEN: Soft, nontender. Nondistended. Bowel sounds heard in all 4 quadrants. No organomegaly or masses. Negative rebound, negative guarding EXTREMITIES: No edema, pulses are equal bilaterally. No cyanosis or clubbing NEUROLOGY: Mood and affect appear appropriate. Cranial nerves II through XII grossly intact. Moving all extremities, speech is clear Hospital Course 52-year-old female who originally presented to hospital because of severe dysphagia, pharyngitis, odynophagia is secondary to intubation that was performed for uncontrolled epistaxis as corrected by Dr. Mirante. Patient cannot swallow and had severe pain is only controlled with morphine. Patient was recommended observation in the hospital and patient was started on Decadron IV, Pepcid, Zyrtec, with significant improvement. Patient did have speech therapy evaluation yesterday which indicated pured diet at this time. Upon evaluating patient this morning she states that she is doing much better. She can actually speak now. There is no more throat pain. Patient indicates that she feels that she can go home at this time. We will plan discharge accordingly. Patient will need follow-up with ENT for further recommendations and management. Pt Condition on Discharge: Stable Discharge Disposition: Discharge Home Discharge Time: <= 30 minutes Discharge Instructions DIET: Follow Instructions for: As Tolerated, No Restrictions Activities you can perform: Regular-No Restrictions Follow up Referrals: PCP Follow-up - 1 Week New Medications: Methylprednisolone Dosepak (Medrol Dosepak) 4 Mg Dspk 4 MG PO DIRECTED, #1 DSPK 0 Refills Per Pharmacist direction Famotidine (Famotidine) 20 Mg Tab 20 MG PO BID for laryngitis, #20 TAB Continued Medications: Albuterol 18 GM Inh (Ventolin Hfa 18 GM Inh) 90 Mcg/Act Aer 1 PUFF INH Q4-6H PRN for SHORTNESS OF BREATH, INHALER 0 Refills Butalbital/Aspirin/Caffeine (Zzgfft-Eotjhle-Rgetd 50-325-40) 50 Mg-325 Mg-40 Mg Tablet 1 TAB PO Q6HR, #30 1 Refill Cetirizine HCl (Zyrtec) 10 Mg Capsule 1 TAB PO DAILY Chlorthalidone (Chlorthalidone) 25 Mg Tab 25 MG PO DAILY, TAB 0 Refills Diltiazem CD 24 HR (Diltiazem CD 24 HR) 300 Mg Caper 300 MG PO DAILY, #30 CAP 0 Refills Ondansetron (Zofran) 4 Mg Tab 4 MG PO Q6HR PRN for NAUSEA OR VOMITING, #12 TAB 0 Refills Potassium Bicarbonate Effervescent (K-Vescent) 25 Meq Tab 50 MEQ PO Q3HR for Electrolyte Replacement, #4 TAB 0 Refills Spironolactone (Aldactone) 50 Mg Tab 50 MG PO DAILY, #30 TAB 6 Refills one tablet three days per week Discontinued Medications: Fexofenadine (Shruthi Allergy) 60 Mg Tab 60 MG PO DAILY for Allergy Management, #60 TAB 0 Refills Meclizine (Meclizine) 25 Mg Tab 25 MG PO TID PRN for VERTIGO, #15 TAB 0 Refills [[facility]] () Michel Baeza Feb 23, 2018 09:13
[2018-02-23] MEDS ORDERED: MEDR4PAK PO (16:00)
== END 2018-02-23 11:44 | disposition home or self-care (01) ==
LOC: PHED 20:07 → PHEDA 02-22 01:42 → PH3B 02-22 02:31
PROVIDERS: ADMIT Hospitalist; ATTEND Hospitalist
DX: J04.10 Acute tracheitis without obstruction (principal); R13.10 Dysphagia, unspecified; E86.0 Dehydration; I10 Essential (primary) hypertension; J45.909 Unspecified asthma, uncomplicated; Z79.899 Other long term (current) drug therapy
CPT/HCPCS: 70360; 70491; 80048; 81001; 85025; 92610; 96361; 96365; 96375; 96376; 99285; G0378; J0295; J1100; J2270; J2405; J7030; Q9967

== ENCOUNTER → 2018-02-21 | Day surgery (SDC) | payer OTHER ==
--- NOTE | 2018-02-20 10:59 | MH ---
cc: Clemente Payne MD DATE OF ADMISSION: 02/21/2018 INDICATIONS: A 52-year-old female with a history of left epistaxis. The patient has an area on the left lateral nose that has been treated in the office on 2 occasions and she has been using topical ointments. This has not resolved. She shows what appears to be a hemangioma versus possible nasal mass. Plan is to proceed with endoscopic control of epistaxis under general anesthesia with a biopsy if indicated. CURRENT MEDICATIONS: Include levocetirizine, chlorthalidone and mupirocin ointment and also spironolactone 50 mg tablet. ALLERGIES: THERE ARE NO KNOWN DRUG ALLERGIES. SHE DOES REPORT LATEX CONTACT ALLERGY. PAST MEDICAL HISTORY: Significant for chronic sinusitis, previous deep vein thrombosis, hypertension, and asthma. PHYSICAL EXAMINATION: GENERAL: A well-developed, well-nourished female, in no apparent distress. HEENT: Normocephalic and atraumatic. Extraocular motions intact. External ear canals clear. Lips, oral mucosa and oropharynx show no lesions. Nasal exam confirms current clot, no active bleed. Left side of the nose. CHEST: Clear to auscultation. HEART: Regular rate. ABDOMEN: Soft. EXTREMITIES: No lesions. NEUROLOGIC: Nonfocal. ASSESSMENT AND PLAN: A 52-year-old female with a history of epistaxis. She is to undergo endoscopic control in the operating room and a biopsy if indicated. The risks and benefits were discussed with the patient. The risks include, but not limited to those of anesthesia, bleeding unfavorable scarring, hematoma, abscess, infection, recurrent bleeding, scarring, airway obstruction, double vision, vision loss, blindness, anosmia, septal perforation. The patient states she understands and accepts the risks of the procedure. Clemente Payne MD JPM/GRACIELA/rr , 08:12 AM , 08:38 AM
[~2018-02-21] VITALS: Ht 157.5 cm; Wt 82.7 kg
[~2018-02-21] MED LIST changes: +*MEPERIDINE 25 MG INJ VIAL PERIprocedural Use ONLY ONE; -ALBU6.7H INH; -ALBU8I INH; +ALLE60TA PO; +BACITRACIN TOP OINT 15 GM TUBE ONE; -BETA0.052 TOPICAL; +BUTA1TAB44 PO; -CART300C2 PO; +CETI10CA3 PO; +CHLO25TA2 PO; -CHLO25TA24 PO; -CHLOR50 PO; +CHLORHEXIDINE GLUCONATE 2 % 1 PACK (2 CLOTHS) TOPICAL PRN; -CLOB0.055 TOPICAL; -CYCL5TAB PO; +DILT300C3 PO; +DO NOT ADM ANY ANTICOAGULANT DRUGS PRN; +EPINEPHrine HCL (1:1000) 1 MG/ML VIAL ONE; +EPINEPHrine HCL (1:1000) 30 MG/30 ML VIAL ONE; -EPIP0.3I IM; +FAMO20TA2 PO; +GELFOAM SIZE 100 ONE; +IBUPROFEN 400 MG TAB PO PRN; +KLORCONEF PO; +LACTATED RINGER'S 1000 ML IV PRN; +LIDOCAINE 1%/EPINEPHrine 1:100,000 SOLN 50 ML VIAL ONE; +LIDOCAINE HCL 1% PF 5 ML SYRINGE OTHER ONE; +MECL-62 PO; +MEDR4PAK PO; +METOPROLOL TARTRATE 25 MG TAB PO PRN; +MIDAZOLAM HCL 2 MG/2 ML VIAL ONE; -MONT10 PO; +MORPHINE SULFATE 4 MG/ML INJ IV PUSH PRN; +ONDANSETRON HCL 4 MG/2 ML VIAL IV PUSH PRN; +POVIDONE IODINE 5% (ANTISEPSIS KIT) 4 APPLICATIONS EACH NARE PRN; +PROPOFOL 200 MG/20 ML AMP IV ONE; +ROCURONIUM INJ 50 MG/5 ML SYRINGE IV PUSH ONE; +SODIUM CHLORID 0.9% 500 ML IV PRN; +SUGAMMADEX SODIUM 200 MG/2 ML VIAL IV PUSH ONE; -TRIA.1%T TOP; +VENTAER INH; -ZITHTAB PO; +ZOFR4TAB PO; -ZOLP10TA3 PO
[2018-02-21 07:13] LABS: AUTOMATED NEUTROPHIL # 4.6 TH/MM3 (1.8-7.7); BASOPHIL % 0.5 % (0.0-2.0); EOSINOPHIL # 0.1 TH/MM3 (0-0.4); EOSINOPHIL % 0.8 % (0.0-4.0); HEMATOCRIT 39.2 % (35.0-46.0); HEMOGLOBIN 13.1 GM/DL (11.6-15.3); MEAN CELL VOLUME 87.8 FL (80.0-100.0); MEAN CORPUSCULAR HEMOGLOBIN 29.4 PG (27.0-34.0); MEAN CORPUSCULAR HGB CONC 33.5 % (32.0-36.0); MEAN PLATELET VOLUME 8.8 FL (7.0-11.0); MONO % 7.3 % (0.0-8.0); MONOCYTE # 0.6 TH/MM3 (0-0.9); NEUT % 55.4 % (16.0-70.0); PLATELET COUNT 282 TH/MM3 (150-450); RED BLOOD COUNT 4.46 MIL/MM3 (4.00-5.30); RED CELL DISTRIBUTION WIDTH 14.2 % (11.6-17.2); WHITE BLOOD COUNT 8.3 TH/MM3 (4.0-11.0)
--- NOTE | 2018-02-21 08:30 | MP ---
cc: Clemente Payne MD DATE OF OPERATION: 02/21/2018 INDICATIONS: This is a 52-year-old female with left epistaxis. Rhonda presented with left nasal bleeding from the lateral wall. She did not tolerate treatment in the office under local. She was brought to the operating room for endoscopic control of epistaxis under general anesthesia. PREOPERATIVE DIAGNOSIS: Left epistaxis. POSTOPERATIVE DIAGNOSIS: Left epistaxis. PROCEDURE PERFORMED: Left endoscopic control of epistaxis. ANESTHESIA: General anesthesia. SUMMARY: The patient was brought to the operating room, placed in the supine position, successfully placed under general anesthesia and prepared in the usual fashion for the procedure. The nasal cavity was examined. The right side was clear. On the left side, she did show evidence of an eschar on the lateral wall just above the inferior turbinate. There was no polyp, no clot, no evidence of a lesion, no ulceration. The area was packed with an adrenaline-soaked sponge and there was evidence of bleeding from this site when the sponge was placed. This was mild and was controlled with packing and overall blood loss was less than 1 mL. After an appropriate amount time, suction cautery was used and the area was cauterized and hemostasis was obtained. In placing the instrument, a small scratch was caused on the nasal septum and I cauterized here also to prevent further bleeding. She was suctioned. There was no active bleeding. The area was dressed with bacitracin ointment. She tolerated the procedure well. She was awakened and taken to recovery in stable condition. Clemente Payne MD JPM/DL , 08:16 AM , 08:29 AM
[2018-02-21 09:50] VITALS: BP 138/81; PULSE 59; RESP 16; TEMP 98.5; O2SAT 98
--- NOTE | 2018-02-21 22:10 | EKG ---
Date Performed: 02/21/2018 Time Performed: 06:54:22 PTAGE: 52 years EKG: SINUS BRADYCARDIA BORDERLINE ECG PREVIOUS TRACING : 09/17/2012 18.46 Compared to previous tracing, rate slower DOCTOR: Tiffany Santacruz Interpretating Date/Time 02/21/2018 22:10:06
== END | disposition home or self-care (01) ==
LOC: HSDC 06:04
PROVIDERS: ATTEND Specialist
DX: R04.0 Epistaxis (principal); R00.1 Bradycardia, unspecified
CPT/HCPCS: 00160; 31238; 85025; 93005; J0171; J2175; J2250; J3010